=== PATIENT | female | born 2000 | race Caucasian/White ===

== ENCOUNTER 2024-02-21 19:04 | Emergency (ER) | payer BC, SELFPAY ==
[2024-02-21 19:08] VITALS: BP 136/83; PULSE 98; RESP 16; TEMP 36.8; O2SAT 99; BMI 22.8
[2024-02-21 19:46] LABS: Specific Gravity Urine UA 1.025 (1.000-1.035)
[2024-02-21 19:47] LABS: pH Urine UA 6.5 (4.5-8.0)
[2024-02-21 19:48] LABS: Appearance Urine UA Slightly Cloudy
[2024-02-21 19:49] LABS: Color Urine UA Orange
[2024-02-21 19:50] LABS: Bacteria Urine Moderate (10-30); Culture Indicated Urine Specimen Cultured; Mucus Urine 1+ (Negative); RBC Urine 5-10/HPF (0-5/HPF); Squamous Epithelial Cell Urine 0-1 /HPF (0-5/HPF); Urine Volume 10mL (spun); WBC Urine 10-30/HPF (0-5/HPF)
--- NOTE | 2024-02-21 20:16 | ED.FEMALEGU ---
HPI - Female Genitourinary General Chief complaint: Urogenital-Female Stated complaint: Blood in Urine, Near Faint,Interstitial Cystitis Time Seen by Provider: 02/21/24 19:22 Source: patient Mode of arrival: Ambulatory History of Present Illness HPI Narrative: 23-year-old female with history of interstitial cystitis diagnosed by specialists in [place] her home state area, working at [employer] this summer, due to return next month, with a couple of days of frequency of urination and painful urination, 1 episode of emesis, no fevers or chills, no flank pain. No anterior abdominal discomfort. Related Data Previous Rx's Medication Instructions Recorded nitrofurantoin macrocrystal 100 mg 100 mg PO BID 7 days #14 caps 02/21/24 capsule (Macrodantin) phenazopyridine 200 mg tablet 200 mg PO TID PRN pain #10 tabs 02/21/24 (Pyridium) Allergies Allergy/AdvReac Type Severity Reaction Status Date / Time No Known Drug Allergies Allergy Verified 02/21/24 20:20 Review of Systems Review of Systems Narrative: see HPI Patient History Substance Use Type: does not use Exam Narrative Exam Narrative: GENERAL: Well-developed patient, in mild distress. HEAD: Atraumatic. Normocephalic. EYES: Pupils equal round and reactive. Extraocular motions intact. No scleral icterus. No injection or drainage. ENT: Nose without bleeding, purulent drainage. Throat without erythema, tonsillar hypertrophy or exudate. Airway patent. NECK: Trachea midline. Non tender CARDIOVASCULAR: Regular rate and rhythm without murmurs, gallops, or rubs. RESPIRATORY: Clear to auscultation. Breath sounds equal bilaterally. No wheezes, rales, or rhonchi. GASTROINTESTINAL: Abdomen soft, non-tender, nondistended. EXTREMITIES: No edema or joint tenderness. BACK: Nontender without deformity or crepitance. No flank tenderness. NEURO: AOx3. SKIN: No rash or erythema of visible areas Initial Vital Signs Initial Vital Signs: Vital Signs Temperature 98.3 F 02/21/24 19:08 Pulse Rate 98 H 02/21/24 19:08 Respiratory Rate 16 02/21/24 19:08 Blood Pressure 136/83 02/21/24 19:08 Pulse Oximetry 99 02/21/24 19:08 Oxygen Delivery Method Room Air 02/21/24 19:08 Course Orders Ordered: ED Orders 02/21/24 19:25 Urinalysis and Microscopic Stat Urine Culture Stat Discontinued Medications Nitrofurantoin Macrocrystals (Nitrofurantoin Er 100 Mg Capsule) 100 mg PO NOW ONE Stop: 02/21/24 20:16 Last Admin: 02/21/24 20:21 Dose: 100 mg Documented By: VIKAS Phenazopyridine HCl (Phenazopyridine 100 Mg Tablet) 200 mg PO NOW ONE Stop: 02/21/24 20:16 Last Admin: 02/21/24 20:21 Dose: 200 mg Documented By: VIKAS Vital Signs Vital signs: Vital Signs - 8 hr 02/21/24 19:08 02/21/24 20:37 Temperature 98.3 F 99.0 F Pulse Rate 98 H 102 H Respiratory Rate 16 16 Blood Pressure 136/83 132/94 H Pulse Oximetry 99 98 Oxygen Delivery Method Room Air Room Air MDM - Female Genitourinary Lab Data Attestation: I reviewed the patient's lab results. Labs: Lab Results 02/21/24 Range/Units 19:25 Urine Color [place] Urine Appearance Slightly cloudy Urine pH 6.5 (4.5-8.0) Ur Specific [place] 1.025 (1.000-1.035) Urine Protein TNP Urine Glucose (UA) TNP Urine Ketones TNP Urine Occult Blood TNP Urine Nitrate TNP Urine Bilirubin TNP Urine Urobilinogen TNP Ur Leukocyte Esterase TNP Urine RBC 5-10/hpf H (0-5/HPF) Urine WBC 10-30/hpf H (0-5/HPF) Ur Squamous Epith Cells 0-1 /hpf (0-5/HPF) Urine Bacteria Moderate (10-30) H (None) Urine Mucus 1+ H (Negative) Ur Culture Indicated? Specimen cultured Vol Urine Centrifuged 10ml (spun) Point of Care Testing Test Results Negative MDM Narrative Medical decision making narrative: 23-year-old female with history of interstitial cystitis, 2 days' duration of dysuria and frequency of urination, urine test negative, urine test shows bacteria inflammatory cells, urine culture requested by protocol, 1st dose antibiotic Macrobid given now with 1st dose Pyridium, further prescription sent to [facility] on [facility] where she is working at [employer] for this summer, before return to [facility] and her gynecology/[facility]. Advised to consider getting a repeat urine culture of cure if she is found to have urine infection, consider to 7 days antibiotics instead of 5 days antibiotics. Drink plenty of fluids. Return precautions discussed. Home with friends for return [facility] Discharge Plan Departure Patient Disposition: Home Clinical Impression: Urinary tract infection Activity Restrictions/Additional Instructions: Painful frequent urination, history of interstitial cystitis known, specialists follow up in [place], visiting [facility] serving at [address] [place] [address], typical UTI symptoms the today and yesterday, no fever, no flank pain. Urinalysis looks suspicious for bacterial infection, urine culture requested. First dose of antibiotic Macrobid now, and prescription sent to [facility] pharmacy. Also consider use of Pyridium that take the sting symptoms away, though this can stain your underwear, be careful to use dark underwear so that does not have any orange staining from a Pyridium. Drink plenty of fluids. Consider rechecking the urine culture in 2-3 days if you have a way to check with a provider, also consider getting a urine test of cure after completion of course of antibiotics if there is confirmation of urinary tract infection. Follow up with your [place] specialist as planned. Return to this/nearest emergency department for any change worsening symptoms or any concerns prior Prescriptions: New nitrofurantoin macrocrystal [Macrodantin] 100 mg capsule 100 mg PO BID 7 Days Qty: 14 0RF Rx Instructions: must administer with a meal/food phenazopyridine [Pyridium] 200 mg tablet 200 mg PO TID PRN (Reason: pain) Qty: 10 0RF Stand Alone Forms: Patient Portal/API
[2024-02-21] MEDS: PHENAZOPYRIDINE 100 MG TABLET 200 MG PO (20:21)
[2024-02-21] MEDS: NITROFURANTOIN ER 100 MG CAPSULE PO (20:21)
[2024-02-21 20:37] VITALS: BP 132/94; PULSE 102; RESP 16; TEMP 37.2; O2SAT 98
== END 2024-02-21 20:38 | disposition home or self-care (01) ==
PROVIDERS: Emergency Provider Emergency Medicine
DX: N39.0 Urinary tract infection, site not specified (principal)
CPT/HCPCS: 81001; 81025; 87086; 99283